=== PATIENT | female | born 1970 | race Caucasian/White ===

== ENCOUNTER 2016-07-24 09:19 | Outpatient (CLI) | payer MEDICAID | END 2016-07-24 11:23 | LOC: D.MAMMO 09:19 | DX: Z12.31 Encounter for screening mammogram for malignant neoplasm of breast (principal) ==

== ENCOUNTER → 2016-09-02 13:18 | Outpatient (CLI) | payer MEDICAID | END | disposition home or self-care (01) | LOC: D.MAMMO 09:30 | DX: R92.8 Other abnormal and inconclusive findings on diagnostic imaging of breast (principal) ==

== ENCOUNTER 2018-04-07 05:00 | Day surgery (SDC) | payer MEDICAID ==
[2018-04-05 14:15] LABS: HEMATOCRIT 40.6 % (36.0-48.0); HEMOGLOBIN 13.6 g/dL (12-16); MCHC 33.5 g/dL (31.0-37.0); MCV 86.6 fL (80.0-100.0); MEAN PLATELET VOLUME 9.3 fL (7.4-10.4); RBC 4.69 10x6/uL (4.00-5.40); RDW 12.8 % (11.5-14.5); WBC 4.7 10x3/uL (4.8-10.8)
[~2018-04-07] VITALS: Ht 157.5 cm; Wt 82.6 kg
[~2018-04-07 05:00] MED LIST: CALAN120 MG PO; MAXZIDE 75/501 TAB PO; PROZAC20 MG PO
[2018-04-07 05:34] VITALS: BP 136/86; Ht 157.5 cm; Wt 82.6 kg
[2018-04-07 06:07] LABS: HCG URINE NEGATIVE (NEGATIVE)
--- NOTE | 2018-04-07 09:56 | OP ---
PATIENT NAME: AMBAR BRICENO MEDICAL RECORD: [id number] :66 LOCATION:D.OPS ADMISSION DATE: SURGEON: ABY ELLIS DPM DATE OF OPERATION: 04/07/2018 PREOPERATIVE DIAGNOSES: 1. HAV, left foot. 2. First met cuneiform joint instability. POSTOPERATIVE DIAGNOSES: 1. HAV, left foot. 2. First met cuneiform joint instability. PROCEDURES: 1. Aguilar bunionectomy, left foot. 2. First met cuneiform joint fusion, left foot. ANESTHESIA: General with local infiltrate utilizing lidocaine and Marcaine plain around the first ray of the left foot, 20 cc total. HEMOSTASIS: Left thigh tourniquet at 350 mmHg. PREOPERATIVE DETAILS: The patient was taken to the OR and placed on the operating table in a supine position, followed by induction of general anesthesia and infiltration of local anesthetic. The left extremity was then prepped and draped in the usual aseptic technique, followed by exsanguination and inflation of tourniquet. PROCEDURE #1: Aguilar bunionectomy, left foot: A 15-blade was used to create an incision from the dorsal aspect of the medial cuneiform to the base of the proximal phalanx of the hallux. The incision was deepened down through subcutaneous tissue to the first MPJ capsule. An inverted-L capsulotomy was performed. The medial capsular flap was reflected and the head of the first metatarsal was delivered. A sagittal saw was used to resect the medial eminence. Attention was then directed to the first interspace, where a lateral release was performed. PROCEDURE #2: First met cuneiform joint fusion, left foot. The incision as described in #1 was deepened down to the periosteum and the first met cuneiform joint was exposed. A sagittal saw was used to resect the joint. Temporary fixation was placed and a 5-hole plate with one screw crossing the fusion site was placed with excellent rigid internal fixation. C-arm was used to verify good placement as well as alignment of the first ray. The wound was flushed. The deep tissue was reapproximated with 2-0 Vicryl, the subcutaneous tissue with 4-0 Rapide, and the skin was closed with 4-0 Rapide in a subcuticular technique, followed by Dermabond. Adaptic, 4 x 4, and Conform were used to dress the wound, followed by application of modified Waddell compression dressing. Tourniquet was deflated. POSTOPERATIVE DETAILS: The patient tolerated the procedure well and left the OR with vital signs stable and vascular status at preoperative levels. The patient was transported to recovery per anesthesia in stable condition. TRANSINT:[id number] Voice Confirmation ID: [id number] DOCUMENT ID: [id number] OPERATIVE REPORT [id number] AMBAR BRICENO, ABY RAMIREZ at 0956 CC: [id number] DICTATION DATE: 04/07/18819 MAINTENANCE AND ENGINEERING MANAGER: 04/07/18 0830 [facility] [address] [place] [address]
== END 2018-04-07 10:00 | disposition home or self-care (01) ==
LOC: D.OPS 05:00
PROVIDERS: Anesthesiology; Podiatrist
DX: M20.12 Hallux valgus (acquired), left foot (principal); M25.375 Other instability, left foot; Z01.812 Encounter for preprocedural laboratory examination

== ENCOUNTER → 2019-01-11 19:59 | Outpatient (CLI) | payer MEDICAID ==
[2018-04-07 05:34] VITALS: BMI 33.3
== END | disposition home or self-care (01) ==
LOC: D.MAMMO 14:15
PROVIDERS: ATTEND Nurse Practitioner
DX: Z12.31 Encounter for screening mammogram for malignant neoplasm of breast (principal)